=== PATIENT | female | born 1960 | race Caucasian/White ===

== ENCOUNTER → 2016-07-22 | Outpatient (CLI) | payer OTHER ==
[~2016-07-22] MED LIST: DICY10CA12 PO; PANT40TA PO
[2016-07-22 16:53] LABS: ALT/SGPT 37 U/L (12-78); AST/SGOT 19 U/L (15-37); BLOOD UREA NITROGEN 9 mg/dl (7-18); BUN/CREATININE RATIO 12.2 (10-20); CARBON DIOXIDE 26 mmol/L (21-32); CHLORIDE 106 mmol/L (98-107); CREATININE 0.71 mg/dl (0.60-1.20); GLUCOSE 91 mg/dl (70-99); SODIUM 141 mmol/L (136-145)
[2016-07-22 16:56] LABS: ALB/GLOB RATIO 1.2 (0.9-2); ALKALINE PHOSPHATASE 86 U/L (45-117); CHOLESTEROL 200 mg/dl (0-200); CHOLESTEROL/HDL RATIO 4.7; HDL CHOLESTEROL 43 mg/dl; LDL CHOLESTEROL CALCULATED 139 mg/dl; TRIGLYCERIDES 90 mg/dl (0-150); VERY LOW DENSITY LIPOPROT CALC 18 mg/dl
[2016-07-23 06:07] LABS: ESTIMATED AVERAGE GLUCOSE 126 mg/dl; HA1C FLAG Normal (Normal)
== END | disposition home or self-care (01) ==
LOC: C.LABBC 15:23
PROVIDERS: ATTEND Internal Medicine
DX: E55.9 Vitamin D deficiency, unspecified (principal); I25.10 Atherosclerotic heart disease of native coronary artery without angina pectoris

== ENCOUNTER 2017-07-19 12:44 | Inpatient (IN) | payer OTHER ==
[~2017-07-19] VITALS: Ht 157.5 cm; Wt 77.4 kg
[2017-07-19] MEDS ORDERED: ASPI-435 PO (13:17)
[2017-07-19] MEDS ORDERED: ONDANSETRON INJ 2 MG/ML 2 ML VIAL IV STA (14:10)
[2017-07-19] MEDS ORDERED: SODIUM CHLORIDE 0.9% 1000ML 1,000 ML IV STA (14:10)
[2017-07-19] MEDS ORDERED: MoRPHine SULFATE 2 MG/ML CARP IV STA (14:10)
--- NOTE | 2017-07-19 14:13 | EMERGENCY ROOM VISIT NOTE ---
History Report prepared by Mona: Paolo Thomas Under the Supervision of: Dr. Oliverio Schneider M.D. First contact with patient: 14:00 Chief Complaint: NAUSEA Stated Complaint: NAUSEA AND VOMITING Nursing Triage Summary: Patient arrived via ALS from home. Patient c/o intermittent N/V/d x3 days and a burning sensation in her stomach. Patient has hx of hypertension and is non-compliant with medications. Patient states, "I do not take the medications for my blood pressure because they don't work." Patient denies CP and SOB. History of Present Illness The patient is a 57 year old female who presents to the Emergency Room with complaints of worsening nausea that began three days ago. She has a past medical history of a bilateral oophorectomy and hypertension, but is non- compliant with her blood pressure medications. The patient's notes that he and his coworkers at work, recently had similar symptoms and believes he may have gotten her sick. The patient's symptoms began with chills and generalized weakness. She then progressed to experiencing nausea with episodes of vomiting intermittently. She is unable to eat solids but has been able to keep liquids down. She is also experiencing a headache with some left sided abdominal pain. She denies any fevers, chest pain, shortness of breath, diarrhea, or numbness. Source of History: patient Onset: three days ago Position: other (GI) Symptom Intensity: moderate Quality: other (Nausea) Timing: constant Associated Symptoms: + chills, + headache, + vomiting, + abdominal pain, + weakness (generalized), No fevers, No chest pain, No SOB, No diarrhea Review of Systems See HPI for pertinent positives & negatives. A total of 10 systems reviewed and were otherwise negative. Past Medical & Surgical Medical Problems: (1) Acute pancreatitis (2) Gastroenteritis (3) Hypertension Old medical records were reviewed. Nurse's notes were reviewed and I agree with. Family History FH: arthritis FH: stroke Social History Smoking Status: Never Smoker Smokeless Tobacco Use: No Drug Use: none Marital Status: Housing Status: lives with significant other Current/Historical Medications Scheduled Aspirin (Aspirin 81), 81 MG PO DAILY Allergies Coded Allergies: Hydroquinone (Verified Allergy, Severe, BLISTER, 07/19/17) AFFECTS HER AT "20%" Hydrocortisone (Verified Allergy, Unknown, BLISTERS, 07/19/17) Latex1 -Allergic Contact Dermititis (Verified Allergy, Unknown, BLISTERS, 07/19/17) Neomycin (Verified Allergy, Unknown, BLISTERS, 07/19/17) Uncoded Allergies: AMMONIUM THIOGLYCOLATE (Allergy, Severe, BLISTERS, 01/01/16) COMPONENT OF LATEX Physical Exam Vital Signs Date Time Temp Pulse Resp B/P (MAP) Pulse Ox O2 Delivery O2 Flow Rate FiO2 07/19/17 18:30 83 18 189/100 95 Room Air 07/19/17 16:30 73 18 193/84 97 Room Air 07/19/17 14:25 80 18 195/111 95 Room Air 07/19/17 12:45 37.1 82 18 215/97 95 Room Air Physical Exam General: Mildly-ill appearing middle-aged female in no acute distress. HEENT: Normal cephalic atraumatic. Pupils are equal round and reactive to light. Extraocular movements are intact. Oropharynx is pink with moist mucous membranes. No swelling of the mouth lips or tongue. Neck: Supple with a midline trachea. No meningeal signs or stiffness, no JVD or bruits. No Stridor. Chest: Clear to auscultation bilaterally. No wheezes or rhonchi. No increased work of breathing. Heart: regular rate and rhythm. Abdomen: Soft, mildly diffusely tender, nondistended without rebound guarding or rigidity. Extremities: No cyanosis clubbing or edema. No calf tenderness or assymetry Spine/Back. Non tender to palpation. No CVA tenderness Skin: Good turgor without rashes. Neurologic exam: Cranial nerves two through 12 are intact. Motor and sensation are intact and symmetrical throughout. Medical Decision & Procedures ER Provider Diagnostic Interpretation: Radiology results as stated below per my review and radiologist interpretation: CHEST ONE VIEW PORTABLE CLINICAL HISTORY: Chest pain, nausea and vomiting. COMPARISON STUDY: No previous studies for comparison. FINDINGS: Lung volumes are normal. There is no pneumothorax or pleural effusion. There is no consolidation to suggest pneumonia. Minimal bibasilar opacities favor atelectasis. There is no evidence for pulmonary edema. Cardiomediastinal silhouette is normal. IMPRESSION: No acute cardiopulmonary findings. Electronically signed by: Jack Miranda M.D. 07/19/2017 2:28 PM Dictated Date/Time: 07/19/2017 2:27 PM Laboratory Results 07/19/17 12:45 Red Blood Count 5.02, Mean Corpuscular Volume 82.5, Mean Corpuscular Hemoglobin 30.5, Mean Corpuscular Hemoglobin Concent 37.0, Mean Platelet Volume 9.8, Neutrophils (%) (Auto) 87.9, Lymphocytes (%) (Auto) 5.4, Monocytes (%) (Auto) 6.5, Eosinophils (%) (Auto) 0.0, Basophils (%) (Auto) 0.0, Neutrophils # (Auto) 7.82, Lymphocytes # (Auto) 0.48, Monocytes # (Auto) 0.58, Eosinophils # (Auto) 0.00, Basophils # (Auto) 0.00 07/19/17 15:54 Test 07/19/17 12:45 07/19/17 14:21 07/19/17 14:39 07/19/17 15:54 White Blood Count 8.90 K/uL (4.8-10.8) Red Blood Count 5.02 M/uL (4.2-5.4) Hemoglobin 15.3 g/dL (12.0-16.0) Hematocrit 41.4 % (37-47) Mean Corpuscular Volume 82.5 fL (80-100) Mean Corpuscular Hemoglobin 30.5 pg (25-34) Mean Corpuscular Hemoglobin Concent 37.0 g/dl (32-36) Platelet Count 240 K/uL (130-400) Mean Platelet Volume 9.8 fL (7.4-10.4) Neutrophils (%) (Auto) 87.9 % Lymphocytes (%) (Auto) 5.4 % Monocytes (%) (Auto) 6.5 % Eosinophils (%) (Auto) 0.0 % Basophils (%) (Auto) 0.0 % Neutrophils # (Auto) 7.82 K/uL (1.4-6.5) Lymphocytes # (Auto) 0.48 K/uL (1.2-3.4) Monocytes # (Auto) 0.58 K/uL (0.11-0.59) Eosinophils # (Auto) 0.00 K/uL (0-0.5) Basophils # (Auto) 0.00 K/uL (0-0.2) RDW Standard Deviation 38.6 fL (36.4-46.3) RDW Coefficient of Variation 13.0 % (11.5-14.5) Immature Granulocyte % (Auto) 0.2 % Immature Granulocyte # (Auto) 0.02 K/uL (0.00-0.02) Bedside Troponin I < 0.030 ng/ml (0-0.045) Influenza Type A Antigen POS for Influ A (NEG) Influenza Type B Antigen Neg for Influ B (NEG) Anion Gap 7.0 mmol/L (3-11) Est Creatinine Clear Calc Drug Dose 80.0 ml/min Estimated GFR () 98.0 Estimated GFR (Non- 84.5 BUN/Creatinine Ratio 18.1 (10-20) Calcium Level 8.1 mg/dl (8.5-10.1) Total Bilirubin 0.3 mg/dl (0.2-1) Direct Bilirubin 0.1 mg/dl (0-0.2) Aspartate Amino Transf (AST/SGOT) 61 U/L (15-37) Alanine Aminotransferase (ALT/SGPT) 33 U/L (12-78) Alkaline Phosphatase 77 U/L (45-117) Total Protein 6.8 gm/dl (6.4-8.2) Albumin 3.4 gm/dl (3.4-5.0) Lipase 2118 U/L (73-393) Laboratory studies as stated above per my review. Medications Administered Medications (Trade) Dose Ordered Sig/Husam Route Start Time Stop Time Status Last Admin Dose Admin Sodium Chloride 1,000 ml @ 999 mls/hr Q1H1M STAT IV 07/19/17 14:10 07/19/17 15:10 DC 07/19/17 14:27 999 MLS/HR Ondansetron HCl (Zofran Inj) 4 mg NOW STAT IV 07/19/17 14:10 07/19/17 14:12 DC 07/19/17 14:27 4 MG Morphine Sulfate (MoRPHine SULFATE INJ) 2 mg NOW STAT IV 07/19/17 14:10 07/19/17 14:12 DC 07/19/17 14:27 2 MG Oseltamivir Phosphate (Tamiflu Cap) 75 mg NOW STAT PO 07/19/17 17:01 07/19/17 17:02 DC 07/19/17 18:34 75 MG ECG Per My Interpretation Indication: nausea Rate (beats per minute): 75 Rhythm: normal sinus Findings: no acute ischemic change, other (No PVC) Comparison ECG Date: no prior available ED Course 1400: Past medical records reviewed. The patient was evaluated in room C5, and a complete history and physical examination were performed. 1410: Ordered Morphine Sulfate 2 mg IV, Zofran Inj 4 mg IV, Sodium Chloride 1000 ml @ 999 mls/hr IV 1548: The patient is beginning to feel better. She is positive for the flu. 1701: Ordered Tamiflu Cap [place] [address]: Upon reevaluation, the patient is resting. I discussed the results and treatment plan with the patient. She verbalized agreement of the treatment plan. The patient will be evaluated by Dr. Ruben Espinoza of [facility] for further management. Medical Decision Differentials include, but are not limited to; gastroenteritis, infection, cardiac disease, and electrolyte or metabolic abnormality. This patient comes in as described above. She has had nausea, vomiting , diarrhea, and flulike symptoms. Her is also been sick. She has some mild abdominal pain. She has no history of pancreatitis or drinking. IV access established and she was hydrated with IV normal saline. she given IV Zofran is feeling quite a bit better. EKG does not suggest acute coronary syndrome or arrhythmia influenza swab was positive. She was placed on droplet isolation. She was given Tamiflu. Also her lipase came back elevated over 1999. She appears to have pancreatitis as well. I do think she needs to be admitted for further treatment and evaluation of pancreatitis have ordered a CAT scan as well as consulted the [facility] hospitalist to see her in the ER. She was happy with the plan and will be admitted Medication Reconcilliation Current Medication List: was personally reviewed by me Blood Pressure Screening Patient's blood pressure: Elevated blood pressure Referred to the hospitalist Consults Time Called: 1709 Consulting Physician: Dr. Ruben Espinoza - [facility] Returned Call: [phone] Discussed the patient's case. The patient will be evaluated for further management. Impression Primary Impression: Pancreatitis Additional Impression: Influenza Scribe Attestation The scribe's documentation has been prepared under my direction and personally reviewed by me in its entirety. I confirm that the note above accurately reflects all work, treatment, procedures, and medical decision making performed by me. Departure Information Dispostion Being Evaluated By Hospitalist Referrals Marcos Egan M.D. (PCP) Patient Instructions My [facility] Problem Qualifiers
[2017-07-19 14:20] LABS: HEMATOCRIT 41.4 % (37-47); HEMOGLOBIN 15.3 g/dL (12.0-16.0); IG# 0.02 K/uL (0.00-0.02); LYMPH % 5.4 %; LYMPH ABS # 0.48 K/uL (1.2-3.4); MEAN CELL VOLUME 82.5 fL (80-100); MEAN CORPUSCULAR HEMOGLOBIN 30.5 pg (25-34); MEAN PLATELET VOLUME 9.8 fL (7.4-10.4); MONO % 6.5 %; MONO ABS # 0.58 K/uL (0.11-0.59); NEUT % 87.9 %; NEUT ABS # 7.82 K/uL (1.4-6.5); PLATELET COUNT 240 K/uL (130-400); RED CELL DISTRIBUTION WIDTH SD 38.6 fL (36.4-46.3)
--- NOTE | 2017-07-19 14:30 | DIAGNOSTIC IMAGING REPORT ---
CHEST ONE VIEW PORTABLE CLINICAL HISTORY: Chest pain, nausea and vomiting. COMPARISON STUDY: No previous studies for comparison. FINDINGS: Lung volumes are normal. There is no pneumothorax or pleural effusion. There is no consolidation to suggest pneumonia. Minimal bibasilar opacities favor atelectasis. There is no evidence for pulmonary edema. Cardiomediastinal silhouette is normal. IMPRESSION: No acute cardiopulmonary findings. Electronically signed by: Jack Miranda M.D. 07/19/2017 2:28 PM Dictated Date/Time: 07/19/2017 2:27 PM
[2017-07-19 15:38] LABS: INFLUENZA B ANTIGEN Neg for Influ B (NEG)
[2017-07-19 16:44] LABS: ALBUMIN 3.4 gm/dl (3.4-5.0); CALCIUM 8.1 mg/dl (8.5-10.1); CREATININE 0.77 mg/dl (0.60-1.20); POTASSIUM 3.5 mmol/L (3.5-5.1)
[2017-07-19 16:47] LABS: TOTAL PROTEIN 6.8 gm/dl (6.4-8.2)
[2017-07-19] MEDS ORDERED: OSELTAMIVIR PHOSPHATE 75 MG CAP PO STA (17:01)
[2017-07-19] MEDS ORDERED: OPTIRAY 320 IV PRN (17:15)
--- NOTE | 2017-07-19 18:00 | DIAGNOSTIC IMAGING REPORT ---
CT ABD/PELVIS IV CONTRAST ONLY CLINICAL HISTORY: Epigastric pain. Possible pancreatitis. COMPARISON STUDY: January 01, 2016 TECHNIQUE: Following the IV administration of mL of Optiray-320, CT scan of the abdomen and pelvis was performed from the lung bases to the proximal femurs. Images are reviewed in the axial, sagittal, and coronal planes. IV contrast was administered without complication. A dose lowering technique was utilized adhering to the principles of ALARA. CT DOSE: 544.05 mGy.cm FINDINGS: Lower chest: There is respiratory motion artifact. The heart is normal in size. There is minor basilar atelectasis. Liver: There is mild hepatic steatosis. No focal masses are visualized. There is no ductal dilatation. Gallbladder: Unremarkable. Spleen: Normal in size and attenuation. Pancreas: Unremarkable. Adrenal glands: There is a 21 mm left adrenal gland nodule. There is mild right adrenal gland thickening. Kidneys: There is symmetric renal cortical enhancement. The kidneys are normal in size without hydronephrosis. Bowel: There are no transition zones indicate bowel obstruction. There is no acute diverticulitis. There is no evidence of acute appendicitis. Peritoneum: There is no intraperitoneal free air or abdominal ascites. Vasculature: The abdominal aorta is normal in course and caliber. Adenopathy: None. Pelvic viscera: The bladder, and pelvic viscera are unremarkable. Skeletal structures: No destructive osseous lesions are seen. IMPRESSION: 1. No evidence of bowel obstruction. No evidence of free air 2. No CT evidence of pancreatitis. 3. Mild hepatic steatosis. 4. 21 mm left adrenal gland nodule. Right adrenal gland thickening. 5. No evidence of acute diverticulitis. 6. No evidence of acute appendicitis. Electronically signed by: Roman Dyson M.D. 07/19/2017 5:59 PM Dictated Date/Time: 07/19/2017 5:55 PM
[2017-07-19] MEDS ORDERED: POLYETHYLENE (MIRALAX) 17 GM PACK PO PRN (18:15)
[2017-07-19] MEDS ORDERED: ACETAMINOPHEN 325 MG TAB PO PRN (18:15)
[2017-07-19] MEDS ORDERED: MAGNESIUM HYDROXIDE SUSP 30 ML UDC PO PRN (18:15)
[2017-07-19] MEDS ORDERED: NITROGLYCERIN 0.4 MG SL PER TAB CHARGE SL PRN (18:15)
[2017-07-19] MEDS ORDERED: ALUMINUM/MAGNESIUM/SIMETH (MAALOX MAX) 30 ML UDC PO PRN (18:15)
[2017-07-19] MEDS ORDERED: ZOLPIDEM TARTRATE 5 MG TAB PO PRN ×2 (18:15)
[2017-07-19] MEDS ORDERED: HydrALAZINE HCL 20 MG/ML VIAL IV. PRN (18:30)
[2017-07-19] MEDS ORDERED: METOPROLOL TARTRATE 25 MG TAB PO ONE (18:30)
--- NOTE | 2017-07-19 19:52 | History and Physical ---
History & Physical Date & Time of Service: Jul 19, 2017 at 18:22 Chief Complaint: Nausea And Vomiting Primary Care Physician: Marcos Egan M.D. History of Present Illness Source: patient 57-year-old female with history of hypertension, patient stopped taking medications for her blood pressure claiming that I stop taking the medicine because nothing is working, also patient reported high blood sugar she does not take any medications of that. Patient only takes aspirin 81 mg once daily. Presented to the ED with 3 days history of epigastric pain nausea and vomiting. Denies any hematemesis denies any fever or chills. Admits to some upper respiratory tract infection and shortness of breath, patient gets cough when she tries to take a deep breath. In the ED patient was found to have a lipase of 2000, she also was found to have influenza positive, her blood pressure systolic was more than 200 but she was asymptomatic from that aspect. Patient denies alcohol drinking, states she drinks socially. I have a feeling that she is downplaying the amount she drinks because she said her disagreed with her comments that she drinks only socially, she said sixpacks of beer last her 4 months and she only drinks hard liquor twice or 3 times a year. Denies any history of dyslipidemia. Family History FH: arthritis FH: stroke Social History Smoking Status: Never Smoker Smokeless Tobacco Use: No Drug Use: none Marital Status: Allergies Coded Allergies: Hydroquinone (Verified Allergy, Severe, BLISTER, 07/19/17) AFFECTS HER AT "20%" Hydrocortisone (Verified Allergy, Unknown, BLISTERS, 07/19/17) Latex1 -Allergic Contact Dermititis (Verified Allergy, Unknown, BLISTERS, 07/19/17) Neomycin (Verified Allergy, Unknown, BLISTERS, 07/19/17) Uncoded Allergies: AMMONIUM THIOGLYCOLATE (Allergy, Severe, BLISTERS, 01/01/16) COMPONENT OF LATEX Home Medications Scheduled Aspirin (Aspirin 81), 81 MG PO DAILY Review of Systems Review of system Constitutional: No fever / no chills / no sweats / no weakness / no fatigue Eyes: no blurring of vision / no eye pain / no discharge / no redness ENT: no hearing loss / no epistaxis /no swallowing problems Respiratory: Nonproductive cough, mild shortness of breath, upper respiratory tract symptoms/ no hemoptysis Cardiovascular: no Chest pain / no lower extremity edema / no palpitation Abdomen: As mentioned in HPI positive for epigastric tenderness, vomiting no diarrhea Musculoskeletal: no joint pain / no muscle pain / no joint swelling Genitourinary: no dysuria / no incontinence / no urinary retention Neurologic: no focal weakness / no numbness/tingling / no ataxia Psychiatric: no depression symptoms / no anxiety / no insomnia Endocrine: no excessive thirst / no excessive urination Hematologic: no abnormal bleeding / no bruising / no LN swelling Skin: No rash / no pallor Physical Exam Vital Signs Date Time Temp Pulse Resp B/P (MAP) Pulse Ox O2 Delivery O2 Flow Rate FiO2 07/19/17 16:30 73 18 193/84 97 Room Air 07/19/17 14:25 80 18 195/111 95 Room Air 07/19/17 12:45 37.1 82 18 215/97 95 Room Air Physical examination General patient appears to be comfortable, not in acute distress HEENT: Atraumatic , normocephalic /no jaundice /no pallor /anicteric /no dry mucous membrane /normal external ear inspection Neck: Supple /no swelling /central trach Heart: S1/S2 normal/regular rate and rhythm/no gallop /no rub /no murmur Lungs: Scattered rhonchi bilaterally, decreased air entry bilaterally. Abdomen: Abdomen is soft, no organomegaly, no pulsatile mass, does have epigastric tenderness and right upper quadrant tenderness no guarding or rebound Musculoskeletal: No swelling/no edema/no tenderness/normal range of motion Neuro exam: Awake alert oriented 3/cranial nerves II through XII appear to be intact/sensation intact/moves all extremities/no abnormal movements Psychiatric evaluation: No depressed mood/normal affect Skin: No rash on exposed skin area/no erythema Extremity: Normal pulse/no pitting edema/no clubbing or cyanosis Endocrine/lymphatic: No obvious lymphadenopathy /no lymphedema Diagnostics Laboratory Results Results Past 24 Hours Test 07/19/17 12:45 07/19/17 14:21 07/19/17 14:39 07/19/17 15:54 Range/Units White Blood Count 8.90 4.8-10.8 K/uL Red Blood Count 5.02 4.2-5.4 M/uL Hemoglobin 15.3 12.0-16.0 g/dL Hematocrit 41.4 37-47 % Mean Corpuscular Volume 82.5 80-100 fL Mean Corpuscular Hemoglobin 30.5 25-34 pg Mean Corpuscular Hemoglobin Concent 37.0 32-36 g/dl Platelet Count 240 130-400 K/uL Mean Platelet Volume 9.8 7.4-10.4 fL Neutrophils (%) (Auto) 87.9 % Lymphocytes (%) (Auto) 5.4 % Monocytes (%) (Auto) 6.5 % Eosinophils (%) (Auto) 0.0 % Basophils (%) (Auto) 0.0 % Neutrophils # (Auto) 7.82 1.4-6.5 K/uL Lymphocytes # (Auto) 0.48 1.2-3.4 K/uL Monocytes # (Auto) 0.58 0.11-0.59 K/uL Eosinophils # (Auto) 0.00 0-0.5 K/uL Basophils # (Auto) 0.00 0-0.2 K/uL RDW Standard Deviation 38.6 36.4-46.3 fL RDW Coefficient of Variation 13.0 11.5-14.5 % Immature Granulocyte % (Auto) 0.2 % Immature Granulocyte # (Auto) 0.02 0.00-0.02 K/uL Bedside Troponin I < 0.030 0-0.045 ng/ml Influenza Type A Antigen POS for Influ A NEG Influenza Type B Antigen Neg for Influ B NEG Sodium Level 134 136-145 mmol/L Potassium Level 3.5 3.5-5.1 mmol/L Chloride Level 100 98-107 mmol/L Carbon Dioxide Level 27 21-32 mmol/L Anion Gap 7.0 3-11 mmol/L Blood Urea Nitrogen 14 7-18 mg/dl Creatinine 0.77 0.60-1.20 mg/dl Est Creatinine Clear Calc Drug Dose 80.0 ml/min Estimated GFR () 98.0 Estimated GFR (Non- 84.5 BUN/Creatinine Ratio 18.1 10-20 Random Glucose 96 70-99 mg/dl Calcium Level 8.1 8.5-10.1 mg/dl Total Bilirubin 0.3 0.2-1 mg/dl Direct Bilirubin 0.1 0-0.2 mg/dl Aspartate Amino Transf (AST/SGOT) 61 15-37 U/L Alanine Aminotransferase (ALT/SGPT) 33 12-78 U/L Alkaline Phosphatase 77 45-117 U/L Total Protein 6.8 6.4-8.2 gm/dl Albumin 3.4 3.4-5.0 gm/dl Lipase 2118 73-393 U/L Test 07/19/17 18:02 Range/Units Diagnostic Radiology CT scan abdomen results IMPRESSION: 1. No evidence of bowel obstruction. No evidence of free air 2. No CT evidence of pancreatitis. 3. Mild hepatic steatosis. 4. 21 mm left adrenal gland nodule. Right adrenal gland thickening. 5. No evidence of acute diverticulitis. 6. No evidence of acute appendicitis. Impression Assessment and Plan 57-year-old female noncompliant with past medical history of hypertension, nontreated, obesity and elevated blood sugar presented to the emergency room with vomiting/abdominal pain/cough and shortness of breath. Assessment Influenza A infection Acute pancreatitis Hypertensive crisis Obesity Mildly elevated blood sugar Incidental finding of 21 mm left adrenal gland nodule. Right adrenal gland thickening Plan Admit patient to telemetry Patient is asymptomatic from her hypertension, reported having hypertension that is resistant to treatment in the past, will treat her blood pressure very slowly over a period of time, start today on metoprolol 25 mg p.o. twice daily, hydralazine only for systolic blood pressure more than 180, target pressure drop is less than 20% within the next 24 hours. Avoid lisinopril as it can cause pancreatitis but self. Start Tamiflu for influenza Keep n.p.o. for bowel rest except medications and ice chips and sips of water Introduce oral intake as early as possible Generous IV fluid hydration CT scan abdomen ruled out hemorrhagic pancreatitis /gallbladder stones , results attached Hold off on antibiotics unless hemorrhagic pancreatitis is suspected Lipid spaniel rule out hypertriglyceridemia Hemoglobin A1c rule out diabetes Pain management Pepcid IV twice daily Heparin for DVT prophylaxis Resuscitation Status VTE Prophylaxis Will order VTE Prophylaxis: Yes
[2017-07-19 20:29] VITALS: BP 172/108; PULSE 82; TEMP 37.3; Ht 157.5 cm; Wt 77.4 kg
[2017-07-19] MEDS: OSELTAMIVIR PHOSPHATE 75 MG CAP PO SCH (21:05)
[2017-07-19] MEDS: SODIUM CHLORIDE 0.9% 1000ML 1,000 ML IV SCH (21:07)
[2017-07-19] MEDS ORDERED: PNEUMOCOCCAL POLYSACCHARIDES 25 MCG/0.5 ML VIAL/SYR IM. ONE (21:15)
[2017-07-19] MEDS ORDERED: PNEUMOCOCCAL ADMINISTRATION CHARGE ONE (21:15)
[2017-07-19] MEDS: ENOXAPARIN 40 MG/0.4 ML SYR SC SCH (22:00)
[2017-07-19] MEDS: PANTOprazole INJ 40 MG in SYRINGE 0 ML IV SCH (22:16)
[2017-07-19] MEDS: ONDANSETRON INJ 2 MG/ML 2 ML VIAL IV PRN (22:27)
[2017-07-20] VITALS (9 sets, daily range): BP systolic 126–155; BP diastolic 76–89; PULSE 72–79; TEMP 37.1–38.1; O2SAT 92–93
[2017-07-20] MEDS: MoRPHine SULFATE 2 MG/ML CARP IV PRN ×2 (00:15→19:25)
[2017-07-20] MEDS ORDERED: NURSING VERBAL MED ORDER ONE (04:30)
[2017-07-20] MEDS ORDERED: IBUPROFEN 600 MG TAB PO ONE (05:00)
[2017-07-20] MEDS: SODIUM CHLORIDE 0.9% 1000ML 1,000 ML IV SCH ×2 (06:28→16:01)
[2017-07-20 07:23] LABS: BASO % 0.1 %; BASO ABS # 0.01 K/uL (0-0.2); HEMATOCRIT 37.4 % (37-47); HEMOGLOBIN 13.2 g/dL (12.0-16.0); IG# 0.02 K/uL (0.00-0.02); LYMPH % 11.3 %; LYMPH ABS # 0.77 K/uL (1.2-3.4); MEAN CORPUSCULAR HEMOGLOBIN 29.7 pg (25-34); MEAN CORPUSCULAR HGB CONC 35.3 g/dl (32-36); MEAN PLATELET VOLUME 9.8 fL (7.4-10.4); MONO ABS # 1.09 K/uL (0.11-0.59); NEUT % 72.3 %; NEUT ABS # 4.94 K/uL (1.4-6.5); PLATELET COUNT 220 K/uL (130-400); RED CELL DISTRIBUTION WIDTH CV 13.1 % (11.5-14.5); RED CELL DISTRIBUTION WIDTH SD 39.6 fL (36.4-46.3); WHITE BLOOD COUNT 6.83 K/uL (4.8-10.8)
[2017-07-20 07:51] LABS: BLOOD UREA NITROGEN 13 mg/dl (7-18); CREATININE 0.78 mg/dl (0.60-1.20); GLUCOSE 86 mg/dl (70-99)
[2017-07-20 07:52] LABS: ALBUMIN 3.1 gm/dl (3.4-5.0); ALT/SGPT 33 U/L (12-78); CALCIUM 8.1 mg/dl (8.5-10.1); CARBON DIOXIDE 24 mmol/L (21-32); LIPASE 808 U/L (73-393); SODIUM 136 mmol/L (136-145)
[2017-07-20 07:54] LABS: ALKALINE PHOSPHATASE 70 U/L (45-117); AST/SGOT 57 U/L (15-37); TOTAL PROTEIN 6.4 gm/dl (6.4-8.2)
[2017-07-20] MEDS ORDERED: POTASSIUM CHLORIDE 20 MEQ TABCR PO ONE (08:45)
[2017-07-20] MEDS: OSELTAMIVIR PHOSPHATE 75 MG CAP PO SCH ×2 (09:15→21:21)
[2017-07-20] MEDS: METOPROLOL TARTRATE 25 MG TAB PO SCH ×2 (09:15→21:21)
[2017-07-20] MEDS: ASPIRIN 81 MG ECTAB PO SCH (09:15)
[2017-07-20] MEDS: PANTOprazole INJ 40 MG in SYRINGE 0 ML IV SCH (11:14)
--- NOTE | 2017-07-20 11:46 | Hospitalist Progress Note ---
Hospitalist Progress Note Date of Service Jul 20, 2017. Subjective Pt evaluation today including: conversation w/ patient, physical exam, lab review, review of studies, review of inpatient medication list Voiding: no voiding problems Patient resting in bed. Feels improved since admission. No appetite- will start clears and advance as tolerated slowly. Epigastric abdominal pain has improved. Currently mild and well controlled. Overall body aches and weakness- RESOLVED. Patient denies any fever, chills, sweats, lightheadedness, dizziness, vision changes, CP, palpitations, edema, SOB, wheezing, cough, nausea, vomiting, diarrhea, urinary symptoms, melena, numbness/tingling, weakness, muscle/joint pain, anxiety/depression, active bleeding, or new skin discoloration/changes. Medications Current Inpatient Medications Medications (Trade) Dose Ordered Sig/Husam Route Start Time Stop Time Status Last Admin Dose Admin Ioversol (Optiray 320) 111 ml UD PRN IV 07/19/17 17:15 07/23/17 17:14 Aspirin (Ecotrin Tab) 81 mg DAILY PO 07/20/17 09:00 08/19/17 08:59 07/20/17 09:15 81 MG Enoxaparin Sodium (Lovenox Inj) 40 mg Q24H SC 07/19/17 22:00 08/18/17 21:59 Sodium Chloride 1,000 ml @ 100 mls/hr Q10H IV 07/19/17 20:00 08/18/17 18:01 07/20/17 06:28 100 MLS/HR Acetaminophen (Tylenol Tab) 650 mg Q4H PRN PO 07/19/17 18:15 08/18/17 18:14 Al Hydrox/Mg Hydrox/Simethicone (Maalox Max Susp) 15 ml Q4H PRN PO 07/19/17 18:15 08/18/17 18:14 Magnesium Hydroxide (Milk Of Magnesia Susp) 30 ml Q12H PRN PO 07/19/17 18:15 08/18/17 18:14 Zolpidem Tartrate (Ambien Tab) 5 mg HSZ PRN PO 07/19/17 18:15 08/18/17 18:14 Ondansetron HCl (Zofran Inj) 4 mg Q6H PRN IV 07/19/17 18:15 08/18/17 18:14 07/19/17 22:27 4 MG Nitroglycerin (Nitrostat Tab) 0.4 mg UD PRN SL 07/19/17 18:15 08/18/17 18:14 Morphine Sulfate (MoRPHine SULFATE INJ) 2 mg Q4H PRN IV 07/19/17 18:15 08/02/17 18:14 07/20/17 00:15 2 MG Polyethylene (Miralax Powder Packet) 17 gm DAILY PRN PO 07/19/17 18:15 08/18/17 18:14 Metoprolol Tartrate (Lopressor Tab) 25 mg BID PO 07/20/17 09:00 08/19/17 08:59 07/20/17 09:15 25 MG Hydralazine HCl (HydrALAZINE INJ) 10 mg Q6H PRN IV. 07/19/17 18:30 08/18/17 18:29 Oseltamivir Phosphate (Tamiflu Cap) 75 mg BID PO 07/19/17 21:00 07/24/17 20:59 07/20/17 09:15 75 MG Pantoprazole Sodium 40 mg/ Syringe 10 ml @ 5 mls/min DAILY@11 IV 07/19/17 22:00 08/18/17 21:59 07/20/17 11:14 5 MLS/MIN Objective Vital Signs Date Time Temp Pulse Resp B/P (MAP) Pulse Ox O2 Delivery O2 Flow Rate FiO2 07/20/17 08:57 37.1 72 16 126/76 (93) 93 Room Air 07/20/17 08:00 Room Air 07/20/17 08:00 92 Room Air 07/20/17 07:03 37.1 07/20/17 04:39 38.1 78 20 127/84 (98) 92 Room Air 07/20/17 04:00 Room Air 07/20/17 00:19 37.6 79 16 134/80 (98) 93 Room Air 07/20/17 00:00 Room Air 07/19/17 20:29 37.3 82 18 172/108 Room Air 07/19/17 19:39 82 18 175/100 93 07/19/17 19:35 82 18 175/100 93 Room Air 07/19/17 18:30 83 18 189/100 95 Room Air 07/19/17 16:30 73 18 193/84 97 Room Air 07/19/17 14:25 80 18 195/111 95 Room Air 07/19/17 12:45 37.1 82 18 215/97 95 Room Air Physical Exam General Appearance: no apparent distress, + obese Eyes: normal inspection, PERRL ENT: hearing grossly normal Neck: supple Respiratory/Chest: lungs clear, no respiratory distress, no accessory muscle use Cardiovascular: regular rate, rhythm Abdomen: normal bowel sounds, soft, + tenderness (mild ttp of epigastric region ) Extremities: no pedal edema, no calf tenderness Neurologic/Psychiatric: alert, normal mood/affect, oriented x 3 Skin: normal color, warm/dry, no rash Laboratory Results Last 24 Hours Test 07/19/17 12:45 07/19/17 14:21 07/19/17 14:39 07/19/17 15:54 White Blood Count 8.90 K/uL Red Blood Count 5.02 M/uL Hemoglobin 15.3 g/dL Hematocrit 41.4 % Mean Corpuscular Volume 82.5 fL Mean Corpuscular Hemoglobin 30.5 pg Mean Corpuscular Hemoglobin Concent 37.0 g/dl Platelet Count 240 K/uL Mean Platelet Volume 9.8 fL Neutrophils (%) (Auto) 87.9 % Lymphocytes (%) (Auto) 5.4 % Monocytes (%) (Auto) 6.5 % Eosinophils (%) (Auto) 0.0 % Basophils (%) (Auto) 0.0 % Neutrophils # (Auto) 7.82 K/uL Lymphocytes # (Auto) 0.48 K/uL Monocytes # (Auto) 0.58 K/uL Eosinophils # (Auto) 0.00 K/uL Basophils # (Auto) 0.00 K/uL RDW Standard Deviation 38.6 fL RDW Coefficient of Variation 13.0 % Immature Granulocyte % (Auto) 0.2 % Immature Granulocyte # (Auto) 0.02 K/uL Prothrombin Time 10.4 SECONDS Prothromb Time International Ratio 1.0 Bedside Troponin I < 0.030 ng/ml Influenza Type A Antigen POS for Influ A Influenza Type B Antigen Neg for Influ B Sodium Level 134 mmol/L Potassium Level 3.5 mmol/L Chloride Level 100 mmol/L Carbon Dioxide Level 27 mmol/L Anion Gap 7.0 mmol/L Blood Urea Nitrogen 14 mg/dl Creatinine 0.77 mg/dl Est Creatinine Clear Calc Drug Dose 80.0 ml/min Estimated GFR () 98.0 Estimated GFR (Non- 84.5 BUN/Creatinine Ratio 18.1 Random Glucose 96 mg/dl Calcium Level 8.1 mg/dl Total Bilirubin 0.3 mg/dl Direct Bilirubin 0.1 mg/dl Aspartate Amino Transf (AST/SGOT) 61 U/L Alanine Aminotransferase (ALT/SGPT) 33 U/L Alkaline Phosphatase 77 U/L Total Protein 6.8 gm/dl Albumin 3.4 gm/dl Triglycerides Level 100 mg/dl Cholesterol Level 123 mg/dl HDL Cholesterol 31 mg/dl LDL Cholesterol, Calculated 72 mg/dl VLDL Cholesterol, Calculated 20 mg/dl Cholesterol/HDL Ratio 4.0 Lipase 2118 U/L Test 07/19/17 21:00 07/20/17 06:36 07/20/17 07:31 Urine Color YELLOW Urine Appearance CLEAR Urine pH 7.0 Urine Specific [place] 1.035 Urine Protein 1+ Urine Glucose (UA) NEG Urine Ketones NEG Urine Occult Blood 1+ Urine Nitrite NEG Urine Bilirubin NEG Urine Urobilinogen NEG Urine Leukocyte Esterase NEG Urine WBC (Auto) 1-5 /hpf Urine RBC (Auto) 0-4 /hpf Urine Hyaline Casts (Auto) 0 /lpf Urine Epithelial Cells (Auto) 10-20 /lpf Urine Bacteria (Auto) NEG White Blood Count 6.83 K/uL Red Blood Count 4.45 M/uL Hemoglobin 13.2 g/dL Hematocrit 37.4 % Mean Corpuscular Volume 84.0 fL Mean Corpuscular Hemoglobin 29.7 pg Mean Corpuscular Hemoglobin Concent 35.3 g/dl Platelet Count 220 K/uL Mean Platelet Volume 9.8 fL Neutrophils (%) (Auto) 72.3 % Lymphocytes (%) (Auto) 11.3 % Monocytes (%) (Auto) 16.0 % Eosinophils (%) (Auto) 0.0 % Basophils (%) (Auto) 0.1 % Neutrophils # (Auto) 4.94 K/uL Lymphocytes # (Auto) 0.77 K/uL Monocytes # (Auto) 1.09 K/uL Eosinophils # (Auto) 0.00 K/uL Basophils # (Auto) 0.01 K/uL RDW Standard Deviation 39.6 fL RDW Coefficient of Variation 13.1 % Immature Granulocyte % (Auto) 0.3 % Immature Granulocyte # (Auto) 0.02 K/uL Sodium Level 136 mmol/L Potassium Level 3.0 mmol/L Chloride Level 103 mmol/L Carbon Dioxide Level 24 mmol/L Anion Gap 9.0 mmol/L Blood Urea Nitrogen 13 mg/dl Creatinine 0.78 mg/dl Est Creatinine Clear Calc Drug Dose 73.6 ml/min Estimated GFR () 96.4 Estimated GFR (Non- 83.2 BUN/Creatinine Ratio 16.6 Random Glucose 86 mg/dl Estimated Average Glucose 126 mg/dl Hemoglobin A1c 6.0 % Calcium Level 8.1 mg/dl Magnesium Level 2.1 mg/dl Total Bilirubin 0.3 mg/dl Direct Bilirubin < 0.1 mg/dl Aspartate Amino Transf (AST/SGOT) 57 U/L Alanine Aminotransferase (ALT/SGPT) 33 U/L Alkaline Phosphatase 70 U/L Total Protein 6.4 gm/dl Albumin 3.1 gm/dl Globulin 3.3 gm/dl Albumin/Globulin Ratio 0.9 Lipase 808 U/L Bedside Glucose 99 mg/dl Assessment and Plan 57-year-old female noncompliant with past medical history of hypertension, nontreated, obesity and elevated blood sugar presented to the emergency room with vomiting/abdominal pain/cough and shortness of breath. Acute pancreatitis, likely secondary to Influenza: - Admitted to med/surg - IV NSS @ 100 ml/hr - Lipase 2100 --> 800 - No gallstones on CT; no excessive ETOH use; triglycerides WNL - Slowly advance diet as tolerated- starting w/ clears - IV Morphine PRN for pain management - IV Zofran PRN for nausea - Discussed w/ GI, Dodie Alford- does not need to see patient and feels most likely from viral source Influenza A: - Droplet precautions - Tamiflu 75 mg BID x5 days- last day of treatment on 07/24 Hypokalemia: Replace w/ PO KCL supplement- follow PRP and replace PRN HTN- CONTROLLED: - Started on Lopressor 25 mg BID - Continue ASA daily - IV Hydralazine PRN Obesity: - Lipid panel reviewed; hgbA1c 6.0% - Encourage healthy diet and exercise GI prophylaxis: Protonix IV daily DVT prophylaxis: Lovenox SQ daily Code status: LEVEL I, FULL Dispo: Discharge to home once medically stable- hopefully in the next 1-2 days
--- NOTE | 2017-07-20 19:12 | DIAGNOSTIC IMAGING REPORT ---
ABDOMEN LIMITED (US) CLINICAL HISTORY: 57 years-old Female presenting with pancreatitis, need GB, liver, pancrease, the biliary system. TECHNIQUE: Real-time grayscale and limited color Doppler ultrasound imaging of the abdomen limited to the right upper quadrant was performed. COMPARISON: CT from 07/19/2017. FINDINGS: Pancreas: Visualized portions of the pancreatic head and body normal. Mild prominence of the pancreatic duct, which is within the range of normal. Liver: Mildly hyperechogenic parenchyma, although the right hemidiaphragm remains visible, likely indicating mild steatosis. The liver measures 14.6 cm in maximal sagittal dimension. No sonographic evidence of hepatic mass. Main portal vein patent with normal directional flow. Biliary: No intrahepatic biliary ductal dilatation. Common bile duct measures up to 4 mm in diameter. Gallbladder: No evidence of gallstones, gallbladder wall thickening, gallbladder distention, or pericholecystic fluid or inflammatory change. Right kidney: Normal in appearance. No hydronephrosis. Ascites: None. IMPRESSION: 1. Hepatic steatosis. Correlate with liver function tests to exclude steatohepatitis as a cause for abdominal pain. 2. No cholelithiasis or biliary ductal dilatation. Electronically signed by: Marcos Fagan M.D. 07/20/2017 7:11 PM Dictated Date/Time: 07/20/2017 7:09 PM
[2017-07-20] MEDS: ONDANSETRON INJ 2 MG/ML 2 ML VIAL IV PRN (19:25)
[2017-07-20] MEDS: ENOXAPARIN 40 MG/0.4 ML SYR SC SCH (21:22)
[2017-07-21] VITALS (10 sets, daily range): BP systolic 130–164; BP diastolic 71–94; PULSE 67–83; TEMP 36.5–38.1; O2SAT 90–96
[2017-07-21] MEDS: SODIUM CHLORIDE 0.9% 1000ML 1,000 ML IV SCH (02:14)
[2017-07-21] MEDS ORDERED: COUGH DROP (SUGAR FREE) LOZ 24 LOZ/1 BOX LOZ ONE (07:54)
[2017-07-21] MEDS: MoRPHine SULFATE 2 MG/ML CARP IV PRN (07:59)
[2017-07-21] MEDS: METOPROLOL TARTRATE 25 MG TAB PO SCH ×2 (08:00→20:39)
[2017-07-21] MEDS ORDERED: NURSING DECISION MEDICATION ORDER SCH (08:00)
[2017-07-21] MEDS: ASPIRIN 81 MG ECTAB PO SCH (08:00)
[2017-07-21] MEDS: OSELTAMIVIR PHOSPHATE 75 MG CAP PO SCH ×2 (08:00→20:40)
[2017-07-21 08:01] LABS: ALT/SGPT 29 U/L (12-78); BLOOD UREA NITROGEN 7 mg/dl (7-18); CARBON DIOXIDE 26 mmol/L (21-32); CREATININE 0.65 mg/dl (0.60-1.20); GLUCOSE 82 mg/dl (70-99); LIPASE 355 U/L (73-393); POTASSIUM 3.1 mmol/L (3.5-5.1); SODIUM 137 mmol/L (136-145)
[2017-07-21 08:08] LABS: ALKALINE PHOSPHATASE 59 U/L (45-117); AST/SGOT 51 U/L (15-37); TOTAL PROTEIN 6.4 gm/dl (6.4-8.2)
[2017-07-21] MEDS ORDERED: COUGH DROP (SUGAR FREE) LOZ 24 LOZ/1 BOX LOZ PRN (08:15)
[2017-07-21] MEDS ORDERED: POTASSIUM CHLORIDE 20 MEQ TABCR PO ONE (10:45)
--- NOTE | 2017-07-21 15:45 | Progress Note ---
Subjective Date of Service: Jul 21, 2017. Subjective Pt evaluation today including: conversation w/ patient, conversation w/ family , physical exam, chart review, lab review, review of studies, conversation w/ help desk consultant, review of inpatient medication list Still cough with some whitish sputum, easier to cough up, was having mild fever last night, denies chest pain No vomiting however no appetite, has tried some clear liquid seems tolerating fair Problem List Medical Problems: (1) Diarrhea Status: Acute (2) GI bleed Status: Acute (3) Influenza Status: Acute (4) Nausea Status: Acute (5) Pancreatitis Status: Acute (6) Vomiting Status: Acute Review of Systems Constitutional: + weakness, + fatigue, No fever, No chills, No sweats, No weight loss, No problem reported Eyes: No worsening of vision, No eye pain, No redness, No discharge, No diplopia ENT: No hearing loss, No unusual epistaxis, No nasal symptoms, No sore throat, No tinnitus, No dental problems, No trouble swallowing Respiratory: + cough, + wheezing, No sputum, No shortness of breath, No dyspnea on exertion, No dyspnea at rest, No hemoptysis Cardiac: No chest pain, No orthopnea, No PND, No edema, No claudication, No palpitations Abdomen: + nausea, No pain, No vomiting, No diarrhea, No constipation Musculoskeletal: No joint pain, No muscle pain, No swelling, No calf pain Female : No dysuria, No urinary frequency, No hematuria, No incontinence, No abnormal vaginal bleeding, No vaginal discharge Neurologic: No memory loss, No paralysis, No weakness, No numbness/tingling, No vertigo, No balance problems Psychiatric: No depression symptoms, No anhedonism, No anxiety, No insomnia, No substance abuse Heme: No abnormal bleeding/bruising, No clotting problems, No swollen lymph nodes, No night sweats Endo: No fatigue, No excessive thirst, No excessive urination Skin: No rash, No itch, No new/changing skin lesions, No color change, No bleeding Objective Vital Signs Date Time Temp Pulse Resp B/P (MAP) Pulse Ox O2 Delivery O2 Flow Rate FiO2 07/21/17 12:00 90 Room Air 07/21/17 11:32 37.7 67 17 146/87 (106) 94 07/21/17 08:00 90 Room Air 07/21/17 07:19 37.6 83 18 157/87 (110) 90 Room Air 07/21/17 04:57 37.6 71 16 130/71 (90) 92 Room Air 07/21/17 04:00 Room Air 07/21/17 00:01 37.4 70 18 164/94 (117) 93 07/21/17 00:00 Room Air 07/20/17 20:00 Room Air 07/20/17 18:01 37.8 72 16 155/89 (111) 92 Room Air 07/20/17 16:00 93 Room Air Physical Exam General Appearance: WD/WN, no apparent distress Eyes: normal inspection, PERRL, EOMI, sclerae normal ENT: normal ENT inspection, hearing grossly normal, pharynx normal Neck: supple, no adenopathy, thyroid normal, no JVD, no carotid bruits, trachea midline Respiratory/Chest: chest non-tender, normal breath sounds, no respiratory distress, no accessory muscle use, + decreased breath sounds, + wheezing Cardiovascular: regular rate, rhythm, no edema, no gallop, no JVD, no murmur Abdomen: normal bowel sounds, non tender, soft, no organomegaly, no pulsatile mass Extremities: normal range of motion, non-tender, normal inspection, no pedal edema, no calf tenderness, normal capillary refill, pelvis stable Neurologic/Psychiatric: 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, no motor/sensory deficits, alert, normal mood/affect, oriented x 3 Skin: normal color, warm/dry, no rash Lymphatic: no adenopathy Laboratory Results Last 24 Hours Test 07/21/17 06:54 Sodium Level 137 mmol/L Potassium Level 3.1 mmol/L Chloride Level 103 mmol/L Carbon Dioxide Level 26 mmol/L Anion Gap 8.0 mmol/L Blood Urea Nitrogen 7 mg/dl Creatinine 0.65 mg/dl Est Creatinine Clear Calc Drug Dose 88.7 ml/min Estimated GFR () 112.6 Estimated GFR (Non- 97.2 BUN/Creatinine Ratio 10.3 Random Glucose 82 mg/dl Calcium Level 8.0 mg/dl Total Bilirubin 0.3 mg/dl Direct Bilirubin < 0.1 mg/dl Aspartate Amino Transf (AST/SGOT) 51 U/L Alanine Aminotransferase (ALT/SGPT) 29 U/L Alkaline Phosphatase 59 U/L Total Protein 6.4 gm/dl Albumin 3.0 gm/dl Globulin 3.4 gm/dl Albumin/Globulin Ratio 0.9 Lipase 355 U/L Assessment and Plan 57-year-old female admitted because of acute pancreatitis and influenza: Stable and improving Acute pancreatitis, likely secondary to Influenza, stable improving, abdominal CT unremarkable, I ordered a right upper quadrant ultrasound to investigate the biliary tract system because of patient complaint right upper quadrant abdominal pain, Right upper quadrant ultrasound was unremarkable continue supportive care, IV fluid, rest, pain control, Increase activities, advance diet as tolerated cont Tamiflu 75 mg BID x5 days- last day of treatment on 4/5 days. Possible discharge home tomorrow if able to tolerate diet and if continue to be stable Continued [facility] stay due to: home environment unsafe for pt Discharge planning: home
[2017-07-21] MEDS: ENOXAPARIN 40 MG/0.4 ML SYR SC SCH (20:40)
[2017-07-22 05:31] VITALS: BP 155/74; PULSE 72; TEMP 37.2; O2SAT 90
[2017-07-22 07:14] LABS: HEMATOCRIT 36.4 % (37-47); HEMOGLOBIN 12.5 g/dL (12.0-16.0); MEAN CORPUSCULAR HEMOGLOBIN 29.2 pg (25-34); MEAN CORPUSCULAR HGB CONC 34.3 g/dl (32-36); MEAN PLATELET VOLUME 9.6 fL (7.4-10.4); PLATELET COUNT 203 K/uL (130-400); RED CELL DISTRIBUTION WIDTH SD 40.6 fL (36.4-46.3); WHITE BLOOD COUNT 4.27 K/uL (4.8-10.8)
[2017-07-22 07:53] VITALS: BP 160/89; PULSE 67; TEMP 36.7; O2SAT 90
[2017-07-22] MEDS: ASPIRIN 81 MG ECTAB PO SCH (07:54)
[2017-07-22] MEDS: METOPROLOL TARTRATE 25 MG TAB PO SCH (07:54)
[2017-07-22] MEDS: OSELTAMIVIR PHOSPHATE 75 MG CAP PO SCH (07:55)
[2017-07-22 07:57] LABS: ALBUMIN 2.8 gm/dl (3.4-5.0); ALT/SGPT 36 U/L (12-78); BLOOD UREA NITROGEN 7 mg/dl (7-18); CALCIUM 8.1 mg/dl (8.5-10.1); CARBON DIOXIDE 28 mmol/L (21-32); CREATININE 0.58 mg/dl (0.60-1.20); GLUCOSE 118 mg/dl (70-99); LIPASE 242 U/L (73-393); POTASSIUM 3.2 mmol/L (3.5-5.1); SODIUM 138 mmol/L (136-145)
[2017-07-22 08:00] LABS: ALKALINE PHOSPHATASE 50 U/L (45-117); AST/SGOT 51 U/L (15-37)
[2017-07-22] MEDS ORDERED: PANTOprazole SOD 40 MG TAB PO SCH (09:00)
[2017-07-22] MEDS ORDERED: TMF75 PO (10:51)
--- NOTE | 2017-07-22 10:53 | Discharge Instructions ---
Discharge Instructions Date of Service Jul 22, 2017. Admission Reason for Admission: Acute Pancreatitis Discharge Discharge Diagnosis / Problem: ACUTE PANCREATITIS, INFLUENZA A Discharge Goals Goal(s): Decrease discomfort, Improve function, Improve disease control, Improve nutritional status, Learn about illness, Diagnostic testing, Prevent Disease Progression Activity Recommendations Activity Limitations: as noted below Lifting Limitations: gradually increase as tolerated Exercise/Sports Limitations: rest today May Resume Sexual Activity: when tolerated Shower/Bathe: no limitations Driving or Machine Use: no limitations . Current Hospital Diet Patient's current hospital diet: Low Fat Diet Discharge Diet Recommended Diet: AHA Diet (Heart Healthy) Pending Studies Studies pending at discharge: no Laboratory Results Hemoglobin A1c Test 07/20/17 06:36 Range/Units Estimated Average Glucose 126 mg/dl Hemoglobin A1c 6.0 H 4.5-5.6 % Lipid Panel Test 07/19/17 15:54 Range/Units Triglycerides Level 100 0-150 mg/dl Cholesterol Level 123 0-200 mg/dl HDL Cholesterol 31 mg/dl Cholesterol/HDL Ratio 4.0 LDL Cholesterol, Calculated 72 mg/dl Medical Emergencies . Who to Call and When: Medical Emergencies: If at any time you feel your situation is an emergency, please call 911 immediately. . Non-Emergent Contact Non-Emergency issues call your: Primary Care Provider Call Non-Emergent contact if: temperature is above 101, your pain is not controlled . . "Provider Documentation" section prepared by Aisha Ross .
--- NOTE | 2017-07-22 11:01 | Discharge Summary ---
Discharge Summary Date of Service Jul 22, 2017. Discharge Summary Admission Date: Jul 19, 2017 at 18:15 Discharge Date: Jul 22, 2017 Discharge Disposition: Home Principal Diagnosis: Acute Pancreatitis Medication Reconciliation New Medications: Oseltamivir Phosphate (Tamiflu) 75 Mg Cap 75 MG PO BID for 2 Days, #4 CAP Continued Medications: Aspirin (Aspirin 81) 81 Mg Tab 81 MG PO DAILY Discharge Exam Review of Systems: Constitutional: No fever, No chills, No weakness, No fatigue Cardiovascular: No chest pain, No edema Abdomen: No pain, No nausea, No vomiting, No diarrhea, No constipation Musculoskeletal: No muscle pain, No swelling Neurologic: No memory loss, No paralysis, No weakness Endocrine: No fatigue Hematologic / Lymphatic: No abnormal bleeding/bruising Integumentary: No rash Physical Exam: General Appearance: WD/WN, no apparent distress, + obese Eyes: EOMI Neck: supple Respiratory/Chest: chest non-tender, lungs clear, normal breath sounds Cardiovascular: regular rate, rhythm, no edema, no gallop Abdomen / GI: normal bowel sounds, non tender, soft, no organomegaly, no pulsatile mass, normal rectal exam Neurologic/Psychiatric: 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 pt tolerated the diet very well.Pt denies any symptoms of abdominal pain, nausea, vominting and diarrhea. Pt lipase trended down , cont Tamiflu 75 mg BID x 2days- We will discharge patient home and advise to stay away from alcohol. Total Time Spent: Greater than 30 minutes This includes examination of the patient, discharge planning, medication reconciliation, and communication with other providers. Discharge Instructions Please refer to the electronic Patient Visit Report (Discharge Instructions) for additional information. Additional Copies To Marcos Egan M.D.
[2017-07-22 11:34] VITALS: BP 160/89; PULSE 62; TEMP 37; O2SAT 91
[2017-07-22] MEDS ORDERED: LPR25 PO (11:50)
[2017-07-22 12:12] VITALS: BP 160/89; PULSE 62; TEMP 37; O2SAT 91
== END 2017-07-22 13:20 | disposition home or self-care (01) | DRG 440 ==
LOC: EDBD 12:44 → C.EDC 12:45 → C.MED 18:15 → ENRESERV 18:47
PROVIDERS: ADMIT Internal Medicine; ATTEND Hospitalist
DX: K85.90 Acute pancreatitis without necrosis or infection, unspecified (principal); Z82.3 Family history of stroke; Z79.82 Long term (current) use of aspirin; Z88.5 Allergy status to narcotic agent; Z88.1 Allergy status to other antibiotic agents

== ENCOUNTER → 2017-09-07 | Outpatient (CLI) | payer OTHER ==
[~2017-09-07] MED LIST changes: +ASPI-435 PO; -DICY10CA12 PO; +LPR25 PO; -PANT40TA PO; +TMF75 PO
== END | disposition home or self-care (01) ==
LOC: C.LAB1850 10:07
PROVIDERS: ATTEND Internal Medicine Endocrinology, Diabetes & Metabolism
DX: E55.9 Vitamin D deficiency, unspecified (principal); E27.9 Disorder of adrenal gland, unspecified; I10 Essential (primary) hypertension

== ENCOUNTER → 2017-09-14 | Outpatient (CLI) | payer OTHER | END | disposition home or self-care (01) | LOC: C.LAB1850 07:40 | PROVIDERS: ATTEND Internal Medicine Endocrinology, Diabetes & Metabolism | DX: E27.9 Disorder of adrenal gland, unspecified (principal) ==

== ENCOUNTER → 2017-09-25 | Outpatient (CLI) | payer OTHER | END | disposition home or self-care (01) | LOC: C.LABSPEC 07:05 | PROVIDERS: ATTEND Internal Medicine Endocrinology, Diabetes & Metabolism | DX: E27.8 Other specified disorders of adrenal gland (principal) ==